=== PATIENT | male | born 1940 | race Two or more races ===

== ENCOUNTER 2022-01-17 01:17 | Inpatient (IN) | payer MEDICARE, MEDICAID ==
[~2022-01-17] VITALS: Ht 182.9 cm; Wt 73.2 kg
[2022-01-17 02:19] LABS: Basophils # (auto) 0 10 ^3/uL (0-0.2); Basophils % (auto) 0.4 % (0.0-2.0); Eosinophils # (auto) 0.1 10 ^3/uL (0-0.8); Eosinophils % (auto) 1.6 % (0.0-7.0); Hematocrit 40.3 % (41.0-53.0); Hemoglobin 14.1 g/dL (13.5-17.5); Lymphocytes # (auto) 0.9 10 ^3/uL (0.4-5.4); Lymphocytes % (auto) 10.4 % (10.0-50.0); Mean Corpuscular Hemoglobin 30.7 pg (28.0-32.0); Mean Corpuscular Volume 87.8 fL (80.0-100.0); Monocytes # (auto) 0.7 10 ^3/uL (0-1.3); Monocytes % (auto) 8.3 % (0.0-12.0); Neutrophils # (auto) 6.8 10 ^3/uL (1.6-8.6); Neutrophils % (auto) 79.3 % (37.0-80.0); Red Blood Cells 4.59 10^6/uL (4.5-5.90); White Blood Cell 8.6 10^3/uL (4.4-10.8)
[2022-01-17 02:35] LABS: Albumin 3.5 g/dL (3.4-5.0); BUN/Creatinine Ratio 19.6; Calcium 8.6 mg/dL (8.5-10.1); Potassium 4.1 mmol/L (3.5-5.1)
[2022-01-17 02:37] LABS: Bilirubin, Total 0.9 mg/dL (0.2-1.0); Total Protein 7.3 g/dL (6.4-8.2)
[2022-01-17] MEDS ORDERED: FUROSEMIDE 40 MG/4 ML VIAL IV ONE (07:00)
[2022-01-17] MEDS ORDERED: SPIRONOLACTONE 25 MG TAB PO ONE (07:00)
[2022-01-17] MEDS ORDERED: NITROGLYCERIN 0.4 MG SL TAB SL PRN (09:00)
[2022-01-17] MEDS ORDERED: ONDANSETRON HCL 4 MG/2 ML VIAL IV PRN (09:00)
[2022-01-17] MEDS ORDERED: MORPHINE SULFATE INJECTION 2 MG/ML SYRG IV PRN ×2 (09:00)
[2022-01-17] MEDS ORDERED: cefTRIAXone 1GM/50ML D5W 50 ML IV ONE (09:30)
[2022-01-17 09:32] LABS: Cholesterol 126 mg/dL (< 200); Triglycerides 71 mg/dL (< 150)
[2022-01-17 09:34] LABS: HDL Cholesterol 43 mg/dL (40-59); LDL Cholesterol 80 mg/dL (< 100)
[2022-01-17] MEDS: PANTOPRAZOLE 40 MG/10 ML VIAL INJ IV SCH (10:10)
[2022-01-17] MEDS: ENOXAPARIN SOD 40 MG/0.4 ML SYRINGE SC SCH (10:11)
[2022-01-17] MEDS: ASPirin 81 mg TAB PO SCH (10:11)
[2022-01-17] MEDS: NICOTINE 7MG/24HR TOPICAL PATCH TD SCH (10:13)
[2022-01-17 10:30] LABS: Urine Bacteria NONE SEEN /hpf (None Seen); Urine Blood Negative /uL (Negative); Urine Specific Gravity 1.005 (1.001-1.035); Urine WBC 4 /hpf (0 - 3)
[2022-01-17] MEDS: AZITHROMYCIN 500MG/ 250ML 250 ML IV SCH (10:31)
[2022-01-17 12:15] VITALS: BP 103/61
[2022-01-17 13:03] VITALS: BP 103/61
[2022-01-17 16:52] VITALS: BP 114/69
[2022-01-17] MEDS: TEMAZEPAM 15 MG CAP PO PRN (21:05)
[2022-01-17] MEDS: ATORVASTATIN 20 MG TAB PO SCH (21:05)
[2022-01-17 22:00] VITALS: BP 112/63
[2022-01-18 05:00] VITALS: BP 98/44
[2022-01-18 05:46] LABS: Basophils # (auto) 0 10 ^3/uL (0-0.2); Basophils % (auto) 0.3 % (0.0-2.0); Eosinophils # (auto) 0.1 10 ^3/uL (0-0.8); Eosinophils % (auto) 1.7 % (0.0-7.0); Hematocrit 41.1 % (41.0-53.0); Hemoglobin 14.2 g/dL (13.5-17.5); Lymphocytes # (auto) 0.8 10 ^3/uL (0.4-5.4); Mean Corpuscular Hemoglobin 30.6 pg (28.0-32.0); Mean Corpuscular Hgb Conc. 34.4 g/dL (32.0-36.0); Mean Corpuscular Volume 88.8 fL (80.0-100.0); Monocytes # (auto) 0.6 10 ^3/uL (0-1.3); Monocytes % (auto) 10.7 % (0.0-12.0); Neutrophils # (auto) 4.4 10 ^3/uL (1.6-8.6); Neutrophils % (auto) 73.3 % (37.0-80.0); Nucleated Red Blood Cells % 0.1 %; Red Blood Cells 4.63 10^6/uL (4.5-5.90); Red Cell Distribution Width 15.5 % (11.8-14.3)
[2022-01-18 05:54] LABS: Albumin 3.1 g/dL (3.4-5.0); Calcium 8.7 mg/dL (8.5-10.1); Potassium 3.9 mmol/L (3.5-5.1)
[2022-01-18 05:58] LABS: BUN/Creatinine Ratio 20.9; Bilirubin, Total 1.1 mg/dL (0.2-1.0); Total Protein 7.2 g/dL (6.4-8.2)
[2022-01-18 09:00] VITALS: BP 101/78
[2022-01-18] MEDS ORDERED: cefTRIAXone 1GM/50ML D5W 50 ML IV SCH (09:00)
[2022-01-18] MEDS: ASPirin 81 mg TAB PO SCH (09:59)
[2022-01-18] MEDS: NICOTINE 7MG/24HR TOPICAL PATCH TD SCH (10:00)
[2022-01-18] MEDS: PANTOPRAZOLE 40 MG/10 ML VIAL INJ IV SCH (10:01)
[2022-01-18] MEDS: FUROSEMIDE 100 MG/10ML VIAL IV SCH (10:01)
[2022-01-18] MEDS: ENOXAPARIN SOD 40 MG/0.4 ML SYRINGE SC SCH (10:02)
[2022-01-18] MEDS: AZITHROMYCIN 500MG/ 250ML 250 ML IV SCH (10:02)
[2022-01-18] MEDS ORDERED: POTASSIUM CHL 20 Meq TABLET PO ONE (11:30)
[2022-01-18 13:00] VITALS: BP 113/41
[2022-01-18 17:27] VITALS: BP 105/57
[2022-01-18] MEDS: TEMAZEPAM 15 MG CAP PO PRN (20:57)
[2022-01-18] MEDS: ATORVASTATIN 20 MG TAB PO SCH (21:03)
[2022-01-18 22:00] VITALS: BP 119/54
[2022-01-19 05:00] VITALS: BP 110/66
[2022-01-19 05:51] LABS: Calcium 8.5 mg/dL (8.5-10.1); Potassium 3.7 mmol/L (3.5-5.1)
[2022-01-19 05:55] LABS: BUN/Creatinine Ratio 23.1
[2022-01-19 09:00] VITALS: BP 112/66
[2022-01-19] MEDS ORDERED: FURO1TAB31 PO (09:38)
[2022-01-19] MEDS ORDERED: POTA-220 PO (09:38)
[2022-01-19] MEDS ORDERED: ATOR20TA50 PO (09:38)
[2022-01-19] MEDS ORDERED: ASPI1CHW15 PO (09:38)
[2022-01-19] MEDS ORDERED: POTASSIUM CHL 20 Meq TABLET PO SCH (10:00)
[2022-01-19] MEDS: ASPirin 81 mg TAB PO SCH (10:23)
[2022-01-19] MEDS: NICOTINE 7MG/24HR TOPICAL PATCH TD SCH (10:25)
[2022-01-19] MEDS: FUROSEMIDE 100 MG/10ML VIAL IV SCH (10:26)
[2022-01-19 11:31] VITALS: BP 112/66
== END 2022-01-19 12:20 | disposition home or self-care (01) | DRG 291 ==
LOC: ER 01:17 → EDBD 01:17 → TELE 09:11 → TELE-CENTR 12:09
PROVIDERS: ADMIT Registered Nurse; ATTEND Internal Medicine
DX: I13.0 Hypertensive heart and chronic kidney disease with heart failure and stage 1 through stage 4 chronic kidney disease, or unspecified chronic kidney disease (principal); I50.43 Acute on chronic combined systolic (congestive) and diastolic (congestive) heart failure; I25.110 Atherosclerotic heart disease of native coronary artery with unstable angina pectoris; Z20.822 Contact with and (suspected) exposure to COVID-19; I49.3 Ventricular premature depolarization; N18.2 Chronic kidney disease, stage 2 (mild); Z98.61 Coronary angioplasty status; Z79.899 Other long term (current) drug therapy; Z79.82 Long term (current) use of aspirin; I25.2 Old myocardial infarction; Z72.0 Tobacco use; Z71.6 Tobacco abuse counseling
CPT/HCPCS: 36415; 71045; 80048; 80053; 80061; 81001; 83880; 84484; 85025; 87040; 93005; 93306; 93886; 96365; 96375; C9113; G0378; J0696